=== PATIENT | female | born 1950 | race Caucasian/White ===

== ENCOUNTER 2016-12-01 17:41 | Emergency (ER) | payer OTHER ==
[~2016-12-01] VITALS: Ht 160 cm; Wt 64.3 kg
[~2016-12-01 17:41] MED LIST: ATEN50TA41 PO; FENO135C PO
[2016-12-01 17:47] VITALS: BP 171/97
[2016-12-01] MEDS ORDERED: FLUORESCEIN OPHTHALMIC 1 MG STRIP ONE (18:07)
[2016-12-01] MEDS ORDERED: PROPARACAINE OPHTH 0.5%, 15ML ONE (18:19)
[2016-12-01] MEDS ORDERED: PROPARACAINE OPHTH 0.5%, 15ML EACHEYE ONE (18:30)
[2016-12-01] MEDS ORDERED: ERYTHROMYCIN OPHTH 0.5%, 1GM RIGHTEYE ONE (19:00)
== END 2016-12-01 19:10 | disposition home or self-care (01) ==
LOC: ED 18:45
DX: S05.01XA Injury of conjunctiva and corneal abrasion without foreign body, right eye, initial encounter (principal); R21 Rash and other nonspecific skin eruption; I10 Essential (primary) hypertension; X58.XXXA Exposure to other specified factors, initial encounter; Y93.89 Activity, other specified; Y99.8 Other external cause status; Y92.89 Other specified places as the place of occurrence of the external cause
CPT/HCPCS: 99283

== ENCOUNTER 2018-06-25 12:34 | Emergency (ER) | payer OTHER ==
[~2018-06-25] VITALS: Ht 160 cm; Wt 59.9 kg
--- NOTE | 2018-06-25 12:49 | NUR ---
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
--- NOTE | 2018-06-25 13:01 | NUR ---
PT STATES SHE FELT SOME L ARM PAIN DURING HER ENTIRE TRIP TO SEE HER FATHER IN [facility]. REPORTS SHE TOOK A VICODIN 2 DAYS AGO AND ALEVE LAST NIGHT. 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 SHE WAS VISITING HER FATHER RECENTLY. STATES SHE IS UNDER "EXTREME STRESS" CURRENTLY.
--- NOTE | 2018-06-25 13:07 | NUR ---
ERP AT BS.
--- NOTE | 2018-06-25 13:10 | NUR ---
PT STATES SHE IS "EXTREMELY JET LAGGED NOW."
--- NOTE | 2018-06-25 14:29 | NUR ---
PT AMBULATED TO BR WITHOUT DIFFICULTY.
--- NOTE | 2018-06-25 15:14 | NUR ---
PT AMBULATED TO BR WITHOUT DIFFICULTY AGAIN. D/C INSTRUCTIONS, MEDS, & F/U APPT RV'WD WITH PT, SHE VERBALIZES UNDERSTANDING. RX GIVEN X2. PT AMBULATED OUT OF ED WITH FRIEND WITHOUT DIFFICULTY.
[2018-06-25 15:30] VITALS: BP 143/73
== END 2018-06-25 15:32 | disposition home or self-care (01) ==
LOC: ED 15:25
DX: M75.32 Calcific tendinitis of left shoulder (principal); M19.012 Primary osteoarthritis, left shoulder; I10 Essential (primary) hypertension; Z87.891 Personal history of nicotine dependence
CPT/HCPCS: 93005; 99283

== ENCOUNTER 2019-04-17 09:30 | Observation (INO) | payer OTHER, MEDICARE ==
[~2019-04-17] VITALS: Ht 162.6 cm; Wt 64.7 kg
--- NOTE | 2019-04-17 10:08 | NUR ---
ASSUMED CARE OF PT. GLF R/T ETOH AND AMBIEN IN BATHROOM. C/O L RIB PAIN. FULL ROM ARMS. LUNGS CTAB. CALL FIELDS IN REACH.
[2019-04-17] MEDS ORDERED: ONDANSETRON 2MG/ML, 2ML ONE (10:10)
[2019-04-17] MEDS ORDERED: MORPHINE SULFATE 4 MG/ML, 1ML ONE (10:10)
[2019-04-17] MEDS: MORPHINE SULFATE 4 MG/ML, 1ML IVPush PRN ×2 (10:23→18:31)
[2019-04-17] MEDS ORDERED: ONDANSETRON 2MG/ML, 2ML IVPush ONE (10:30)
[2019-04-17] MEDS ORDERED: SODIUM CHLORIDE FLUSH 10ML SYR IVF ONE (10:30)
--- NOTE | 2019-04-17 10:32 | NUR ---
PIV EST LABS SENT. MEDS PER APR. PLAN FOR CT/XR.
[2019-04-17 10:45] LABS: BASOPHILS # (AUTO) 0.01 x10^3/uL (0-0.1); BASOPHILS % (AUTO) 0 % (0-1); EOSINOPHILS # (AUTO) 0.12 x10^3/uL (0-0.4); EOSINOPHILS % (AUTO) 2 % (1-7); LYMPHOCYTES % (AUTO) 15 % (22-44); MD NO; MEAN CORPUSCULAR HEMOGLOBIN 32.4 pg (27.0-34.8); MEAN CORPUSCULAR HGB CONC 33.9 g/dL (32.4-35.8); MEAN CORPUSCULAR VOLUME 95.7 fL (80-100); MEAN PLATELET VOLUME 7.8 fL (7.4-10.4); MONOCYTES # (AUTO) 0.79 x10^3/uL (0.2-0.8); MONOCYTES % (AUTO) 10 % (2-9); NEUTROPHILS # (AUTO) 5.74 x10^3/uL (1.8-6.8); NEUTROPHILS % (AUTO) 73 % (42-75); PLATELET COUNT 218 x10^3/uL (130-400); RED CELL DISTRIBUTION WIDTH 13.6 % (9.6-15.2)
[2019-04-17 10:53] LABS: ALBUMIN 3.8 g/dL (3.4-5.0); ANION GAP 6 mmol/L (5-15); CALCIUM 9.3 mg/dL (8.5-10.1); CHLORIDE 104 mmol/L (98-107); CREATININE 1.03 mg/dL (0.55-1.02)
--- NOTE | 2019-04-17 10:53 | NUR ---
PROVIDER IN TO SPEAK W/ PT RE: JAJA NUGENT.
--- NOTE | 2019-04-17 12:10 | NUR ---
pt resting calmly, continues to await ct. as
--- NOTE | 2019-04-17 12:14 | NUR ---
pt to ct. as
[2019-04-17] MEDS ORDERED: OMNIPAQUE 350 MG/ML, 100ML BOTTLE ONE (13:07)
--- NOTE | 2019-04-17 13:24 | NUR ---
awaiting ct results. nad. call jameson in reach. as
--- NOTE | 2019-04-17 14:34 | NUR ---
ct back. gen sx consult. as
--- NOTE | 2019-04-17 14:51 | NUR ---
placed on 2 lnc, improved sats 91-97%. call jameson in reach, no needs at this time. as
--- NOTE | 2019-04-17 15:24 | NUR ---
IS-less than 500 w/ pain on inspiration. as
--- NOTE | 2019-04-17 15:41 | NUR ---
pt to be admitted. aware and agrees. as
[2019-04-17] MEDS ORDERED: ZOLPIDEM 5MG TABLET PO PRN (16:30)
[2019-04-17] MEDS ORDERED: LIDODERM 5% PATCH TD PRN (16:30)
[2019-04-17] MEDS ORDERED: ACETAMINOPHEN 325 MG TABLET PO PRN (16:30)
[2019-04-17] MEDS ORDERED: ONDANSETRON 2MG/ML, 2ML IVPush PRN (16:30)
[2019-04-17] MEDS ORDERED: POTASSIUM CHLORIDE 20 MEQ TAB.ER.PRT PO ONE (16:30)
[2019-04-17] MEDS ORDERED: GABAPENTIN 300 MG CAPSULE PO PRN (16:30)
[2019-04-17] MEDS ORDERED: ONDANSETRON ODT 4 MG PO PRN (16:30)
[2019-04-17] MEDS ORDERED: METHOCARBAMOL 500 MG TABLET PO PRN (16:30)
[2019-04-17] MEDS: ATORVASTATIN 20 MG TABLET PO SCH (19:57)
[2019-04-17] MEDS: morphine SULFATE 10 MG/ML, 1ML IVPush PRN ×2 (20:05→23:21)
[2019-04-17 20:06] VITALS: BP 122/82
[2019-04-17 20:30] VITALS: BP 122/82
[2019-04-18 00:18] VITALS: BP 104/65
[2019-04-18 06:52] VITALS: BP 116/74
[2019-04-18 07:14] LABS: BASOPHILS # (AUTO) 0.02 x10^3/uL (0-0.1); BASOPHILS % (AUTO) 0 % (0-1); EOSINOPHILS # (AUTO) 0.17 x10^3/uL (0-0.4); EOSINOPHILS % (AUTO) 2 % (1-7); LYMPHOCYTES # (AUTO) 1.51 x10^3/uL (1-3.4); LYMPHOCYTES % (AUTO) 18 % (22-44); MD NO; MEAN CORPUSCULAR HEMOGLOBIN 32.7 pg (27.0-34.8); MEAN CORPUSCULAR HGB CONC 33.9 g/dL (32.4-35.8); MEAN CORPUSCULAR VOLUME 96.5 fL (80-100); MEAN PLATELET VOLUME 7.4 fL (7.4-10.4); MONOCYTES # (AUTO) 0.94 x10^3/uL (0.2-0.8); MONOCYTES % (AUTO) 11 % (2-9); NEUTROPHILS # (AUTO) 5.81 x10^3/uL (1.8-6.8); NEUTROPHILS % (AUTO) 69 % (42-75); PLATELET COUNT 219 x10^3/uL (130-400); RED BLOOD COUNT 4.31 x10^6/uL (3.82-5.3); RED CELL DISTRIBUTION WIDTH 13.3 % (9.6-15.2)
[2019-04-18 07:24] LABS: ALBUMIN 3.5 g/dL (3.4-5.0); ANION GAP 6 mmol/L (5-15); CALCIUM 9.1 mg/dL (8.5-10.1); CHLORIDE 103 mmol/L (98-107)
[2019-04-18 07:30] LABS: ALANINE AMINOTRANSFERASE 24 U/L (12-78); ALKALINE PHOSPHATASE 62 U/L (45-117); BILIRUBIN,TOTAL 0.7 mg/dL (0.2-1.0); TOTAL PROTEIN 7.4 g/dL (6.4-8.2)
[2019-04-18] MEDS: LOSARTAN 100 MG TAB PO SCH ×2 (08:14→10:37)
[2019-04-18] MEDS: KETOROLAC 30 MG/1 ML IV PRN ×3 (08:16→21:54)
[2019-04-18] MEDS: HYDROcodone/APAP 5/325 TABLET PO PRN ×3 (08:16→22:17)
[2019-04-18] MEDS ORDERED: POTASSIUM CHLORIDE 20 MEQ TAB.ER.PRT PO ONE (08:30)
[2019-04-18 12:49] VITALS: BP 110/66
[2019-04-18] MEDS: IBUPROFEN 800 MG TABLET PO SCH ×2 (17:47→21:53)
[2019-04-18] MEDS: ACETAMINOPHEN 500 MG TABLET PO SCH (17:48)
[2019-04-18] MEDS: GABAPENTIN 100 MG CAPSULE PO SCH ×3 (17:48→21:53)
[2019-04-18] MEDS: LIDODERM 5% PATCH TD SCH (17:50)
[2019-04-18 19:56] VITALS: BP 96/61
[2019-04-18] MEDS: ATORVASTATIN 20 MG TABLET PO SCH (21:53)
[2019-04-19 01:11] VITALS: BP 89/57
[2019-04-19 03:13] VITALS: BP 91/58
[2019-04-19 05:34] LABS: CHLORIDE 103 mmol/L (98-107)
[2019-04-19 05:39] LABS: CALCIUM 8.8 mg/dL (8.5-10.1); CREATININE 1.13 mg/dL (0.55-1.02)
[2019-04-19 05:59] LABS: ANION GAP 6 mmol/L (5-15)
[2019-04-19 06:05] VITALS: BP 95/59
[2019-04-19] MEDS: ACETAMINOPHEN 500 MG TABLET PO SCH ×2 (06:07→16:07)
[2019-04-19 06:52] VITALS: BP 104/68
[2019-04-19] MEDS: GABAPENTIN 100 MG CAPSULE PO SCH ×2 (11:38→16:07)
[2019-04-19] MEDS: IBUPROFEN 800 MG TABLET PO SCH ×2 (11:39→16:07)
[2019-04-19 12:26] VITALS: BP 105/69
[2019-04-19] MEDS ORDERED: METH500T7 PO (15:50)
[2019-04-19] MEDS ORDERED: GABA-826 PO (15:50)
[2019-04-19] MEDS ORDERED: IBUP-1223 PO (15:50)
[2019-04-19] MEDS ORDERED: ACET500T64 PO (15:50)
[2019-04-19] MEDS ORDERED: OXYC5TAB3 PO (15:50)
[2019-04-19] MEDS: LIDODERM 5% PATCH TD SCH (16:07)
[2019-04-19] MEDS ORDERED: LOSA1TAB22 PO (16:17)
[2019-04-19] MEDS ORDERED: ATOR20TA37 PO (16:20)
== END 2019-04-19 19:00 | disposition home or self-care (01) ==
LOC: ED 09:45 → EDIP 15:56 → INTOOBSV 15:56 → 3N 16:45
PROVIDERS: ADMIT Internal Medicine; ATTEND Internal Medicine
DX: S22.43XA Multiple fractures of ribs, bilateral, initial encounter for closed fracture (principal); S09.90XA Unspecified injury of head, initial encounter; I10 Essential (primary) hypertension; E78.5 Hyperlipidemia, unspecified; J98.11 Atelectasis; J90 Pleural effusion, not elsewhere classified; K80.20 Calculus of gallbladder without cholecystitis without obstruction; R73.9 Hyperglycemia, unspecified; E87.6 Hypokalemia; M48.02 Spinal stenosis, cervical region; M19.90 Unspecified osteoarthritis, unspecified site; Z79.899 Other long term (current) drug therapy; Z96.652 Presence of left artificial knee joint; Z87.891 Personal history of nicotine dependence; W01.0XXA Fall on same level from slipping, tripping and stumbling without subsequent striking against object, initial encounter; Y92.002 Bathroom of unspecified non-institutional (private) residence as the place of occurrence of the external cause; Y93.01 Activity, walking, marching and hiking
CPT/HCPCS: 36415; 70450; 71101; 71260; 72125; 74177; 80048; 80053; 82040; 83036; 85025; 96374; 96375; 96376; 97162; 97166; 99285; G0378; J1885; J2270; J2405; Q9967

== ENCOUNTER 2019-09-21 15:42 | Outpatient (CLI) | payer MEDICARE, OTHER ==
[~2019-09-21 15:42] MED LIST changes: +ACET500T64 PO; +ATOR20TA37 PO; +GABA-826 PO; +IBUP-1223 PO; +LOSA1TAB22 PO; +METH500T7 PO; +OXYC5TAB3 PO
== END 2019-09-21 23:59 | disposition home or self-care (01) ==
LOC: CFH 15:42
PROVIDERS: ATTEND Family Medicine
DX: R91.8 Other nonspecific abnormal finding of lung field (principal); Z87.81 Personal history of (healed) traumatic fracture
CPT/HCPCS: 71250

== ENCOUNTER 2020-08-23 11:06 | Emergency (ER) | payer OTHER ==
[~2020-08-23] VITALS: Ht 160 cm; Wt 57.0 kg
[~2020-08-23 11:06] MED LIST changes: +METH-639 PO; -METH500T7 PO; -OXYC5TAB3 PO; +OXYC5TAB98 PO
[2020-08-23 11:11] VITALS: BP 113/53
[2020-08-23 12:45] LABS: ANION GAP 9 mmol/L (5-15); CALCIUM 10.1 mg/dL (8.5-10.1); CHLORIDE 106 mmol/L (98-107); CREATININE 1.02 mg/dL (0.55-1.02)
[2020-08-23] MEDS ORDERED: POTASSIUM CHLORIDE 20 MEQ PACKET PO ONE (13:00)
[2020-08-23] MEDS ORDERED: POTASSIUM CHLORIDE 40 MEQ in SODIUM CHLORIDE 0.9% 500 ML IV ONE (13:00)
[2020-08-23] MEDS ORDERED: POTASSIUM CHLORIDE 20 MEQ PACKET ONE (13:31)
== END 2020-08-23 15:05 | disposition home or self-care (01) ==
LOC: ED 13:05
DX: E87.6 Hypokalemia (principal); I10 Essential (primary) hypertension; E78.5 Hyperlipidemia, unspecified; Z87.891 Personal history of nicotine dependence
CPT/HCPCS: 36415; 80048; 93005; 99284